=== PATIENT | female | born 1995 | race Caucasian/White ===

== ENCOUNTER 2018-02-14 19:53 | Emergency (ER) | payer OTHER ==
[2018-02-14] MEDS ORDERED: PRED-1 PO (20:09)
[2018-02-14] MEDS ORDERED: MYCO500T28 PO (20:09)
[2018-02-14] MEDS ORDERED: NS(*) 0.9% 1000 ML BAG 1,000 ML IV ONE (20:18)
--- NOTE | 2018-02-14 20:50 | ER Report ---
History and Physical Time Seen By MD: 20:04 Hx. of Stated Complaint: PT HAS LUPS; STATES THAT SHE FEELS LIKE SHE IS HAVING A FLAIR UP AND HAS A FEVER; STATES THAT SHE FEELS NUMB, BACK PAIN AND ITS HURTS TO BREATH HPI/ROS CHIEF COMPLAINT: Generalized body aches, fever, not feeling well. HISTORY OF PRESENT ILLNESS: 22-year-old female patient presents to emergency room with complaint of generalized body aches, fever and not feeling well. Patient states that this been going on for approximately one week. She was seen at a hospital down in [place]. They evaluated her and put her on steroids. She states she took the steroids as directed and never felt better while taking steroids. They told her that she did have a flareup of her lupus. Patient states that they did lab work, blood cultures, chest x-ray and then sent her home with steroids. Patient states she does not feel as if that seemed to help at all. Patient is currently taking 1500 mg of CellCept as well as 5 mg of prednisone daily. She does state that she did have her bellybutton pierced and has noticed a purulent drainage from that. She states that she has had a fever up to 102. She states that the fever seemed to be better while she was on the steroids, however the fever has returned since finishing the steroids. REVIEW OF SYSTEMS: Respiratory: No cough, no dyspnea. Cardiovascular: No chest pain, no palpitations. Gastrointestinal: No vomiting, no abdominal pain. Musculoskeletal: No back pain. Allergies: Coded Allergies: Sulfa (Sulfonamide Antibiotics) (Verified Allergy, Unknown, 02/14/18) bacitracin (Verified Allergy, Unknown, 02/14/18) neomycin (Verified Allergy, Unknown, 02/14/18) polymyxin B (Verified Allergy, Unknown, 02/14/18) prednisolone (Verified Allergy, Unknown, 02/14/18) Home Meds Active Scripts Prednisone (PREDNISONE) 20 Mg Tablet, 40 MG PO DAILY, #17 TAB Take 2 tabs a day for 4 days. Then take 1.5 tabs for 3 days. Then take 1 tab a day for 3 days. Take 0.5 tabs for 3 days and then return to your normal prescription. Prov:ALFRED MIKE 02/14/18 Cephalexin 500 Mg Tab (KEFLEX 500 MG TAB) 500 Mg Tablet, 500 MG PO Q6H, #38 TAB Prov:ALFRED MIKE [employer]IDENT[employer] M[employer]GAGE UNDERWRITER 02/14/18 Reported Medications Mycophenolate Mofetil (MYCOPHENOLATE MOFETIL) 500 Mg Tablet, 1500 MG PO BID 02/14/18 Prednisone 10 Mg Tab (PREDNISONE 10 MG TAB) 10 Mg Tablet, 5 MG PO BID, #3 TAB 02/14/18 Past Medical/Surgical History Patient has a past medical history of heart murmur, right wrist fracture, lupus. Patient has surgical history of right wrist surgery, tubes in ears. Reviewed Nurses Notes: Yes Constitutional Vital Sign - Last 24 Hours 02/14/18 02/14/18 02/14/18 02/14/18 19:59 20:00 20:00 20:23 Temp 97.8 Pulse 111 ??? Resp 17 B/P (MAP) 110/88 (95) 108/69 108/69 (82) Pulse Ox 97 O2 Delivery Room Air 02/14/18 02/14/18 02/14/18 02/14/18 20:32 20:53 21:04 21:23 Pulse 92 87 B/P (MAP) 105/70 (82) 103/67 (79) Pulse Ox 86 100 02/14/18 02/14/18 02/14/18 21:30 21:30 22:00 Pulse 84 94 B/P (MAP) 104/65 (78) 104/65 (78) 104/70 (81) Pulse Ox 90 96 Physical Exam General Appearance: The patient is alert, has no immediate need for airway protection and no current signs of toxicity. ENT: Tympanic membranes are pearly-nunez, auditory canals are patent, mucous membranes are moist. Respiratory: Chest is non tender, lungs are clear to auscultation. Cardiac: regular rate and rhythm Gastrointestinal: Abdomen is soft and non tender, no masses, bowel sounds normal. Musculoskeletal: Neck: Neck is supple and non tender. Extremities have full range of motion and are non tender. Skin: No rashes or lesions. Patient does have some erythema around her bellybutton piercing, she states that she has had some drainage, I was not able to express any purulent drainage. DIFFERENTIAL DIAGNOSIS: After history and physical exam differential diagnosis was considered for fever in adults including but not limited to pneumonia, urinary tract infection, viral syndrome, and influenza. Included in the differential is cellulitis as well as lupus flareup Medical Decision Making Data Points Result Diagram: 02/14/18203902/14/182039 Laboratory Hematology Test 02/14/18 20:17 02/14/18 20:40 Human Chorionic Gonadotropin, Qual Negative (NEGATIVE) Monoscreen Negative (NEGATIVE) Influenza Virus Type A (PCR) Negative (NEGATIVE) Influenza Virus Type B (PCR) Negative (NEGATIVE) Group A Streptococcus Screen Negative (NEGATIVE) Red Blood Count 4.70 M/uL (4.17-5.56) Mean Corpuscular Volume 84.8 fL (80.0-96.0) Mean Corpuscular Hemoglobin 29.8 pg (26.0-33.0) Mean Corpuscular Hemoglobin Concent 35.1 g/dL (32.0-36.0) Red Cell Distribution Width 13.2 % (11.5-14.5) Mean Platelet Volume 8.2 fL (7.2-11.1) Neutrophils (%) (Auto) 77.8 % (39.4-72.5) Lymphocytes (%) (Auto) 15.4 % (17.6-49.6) Monocytes (%) (Auto) 5.4 % (4.1-12.4) Eosinophils (%) (Auto) 0.4 % (0.4-6.7) Basophils (%) (Auto) 1.0 % (0.3-1.4) Nucleated RBC Relative Count (auto) 0.1 /100WBC Neutrophils # (Auto) 8.2 K/uL (2.0-7.4) Lymphocytes # (Auto) 1.6 K/uL (1.3-3.6) Monocytes # (Auto) 0.6 K/uL (0.3-1.0) Eosinophils # (Auto) 0.0 K/uL (0.0-0.5) Basophils # (Auto) 0.1 K/uL (0.0-0.1) Nucleated RBC Absolute Count (auto) 0.01 K/uL Erythrocyte Sedimentation Rate 22 mm/HOUR (0-20) Urine Color Yellow Urine Clarity Clear Urine pH 7.0 pH (4.8-9.5) Urine Specific [place] 1.019 Urine Protein Negative mg/dL (NEGATIVE) Urine Glucose (UA) Negative mg/dL (NEGATIVE) Urine Ketones Negative mg/dL (NEGATIVE) Urine Blood Negative (NEGATIVE) Urine Nitrite Negative (NEGATIVE) Urine Bilirubin Negative (NEGATIVE) Urine Urobilinogen Negative mg/dL (0.2-1.9) Urine Leukocyte Esterase Negative (NEGATIVE) Urine RBC <1 /HPF (0-2/HPF) Urine WBC 2 /HPF (0-5/HPF) Urine Squamous Epithelial Cells Many /LPF (</=FEW) Urine Transitional Epithelial Cells Few /LPF (NONE-FEW) Urine Bacteria Negative /HPF (NONE-FEW) Urine Mucus None /HPF (NONE-FEW) Sodium Level 141 mmol/L (137-145) Potassium Level 3.5 mmol/L (3.5-5.0) Chloride Level 102 mmol/L (98-107) Carbon Dioxide Level 23 mmol/L (22-31) Blood Urea Nitrogen 17 mg/dl (7-18) Creatinine 0.70 mg/dl (0.52-1.04) Glomerular Filtration Rate Calc > 60.0 Random Glucose 80 mg/dl (75-110) Calcium Level 9.1 mg/dl (8.4-10.2) Total Bilirubin 0.3 mg/dl (0.2-1.3) Aspartate Amino Transf (AST/SGOT) 14 U/L (0-35) Alanine Aminotransferase (ALT/SGPT) 24 U/L (0-56) Alkaline Phosphatase 81 U/L (0-126) C-Reactive Protein 2.3 mg/dl (<1.0) Total Protein 8.0 g/dl (6.3-8.2) Albumin 4.5 g/dl (3.5-5.0) Chemistry Test 02/14/18 20:17 02/14/18 20:40 Human Chorionic Gonadotropin, Qual Negative (NEGATIVE) Monoscreen Negative (NEGATIVE) Influenza Virus Type A (PCR) Negative (NEGATIVE) Influenza Virus Type B (PCR) Negative (NEGATIVE) Group A Streptococcus Screen Negative (NEGATIVE) White Blood Count 10.5 k/uL (4.5-11.0) Red Blood Count 4.70 M/uL (4.17-5.56) Hemoglobin 14.0 g/dL (12.0-16.0) Hematocrit 39.9 % (34.0-47.0) Mean Corpuscular Volume 84.8 fL (80.0-96.0) Mean Corpuscular Hemoglobin 29.8 pg (26.0-33.0) Mean Corpuscular Hemoglobin Concent 35.1 g/dL (32.0-36.0) Red Cell Distribution Width 13.2 % (11.5-14.5) Platelet Count 267 K/uL (150-450) Mean Platelet Volume 8.2 fL (7.2-11.1) Neutrophils (%) (Auto) 77.8 % (39.4-72.5) Lymphocytes (%) (Auto) 15.4 % (17.6-49.6) Monocytes (%) (Auto) 5.4 % (4.1-12.4) Eosinophils (%) (Auto) 0.4 % (0.4-6.7) Basophils (%) (Auto) 1.0 % (0.3-1.4) Nucleated RBC Relative Count (auto) 0.1 /100WBC Neutrophils # (Auto) 8.2 K/uL (2.0-7.4) Lymphocytes # (Auto) 1.6 K/uL (1.3-3.6) Monocytes # (Auto) 0.6 K/uL (0.3-1.0) Eosinophils # (Auto) 0.0 K/uL (0.0-0.5) Basophils # (Auto) 0.1 K/uL (0.0-0.1) Nucleated RBC Absolute Count (auto) 0.01 K/uL Erythrocyte Sedimentation Rate 22 mm/HOUR (0-20) Urine Color Yellow Urine Clarity Clear Urine pH 7.0 pH (4.8-9.5) Urine Specific [place] 1.019 Urine Protein Negative mg/dL (NEGATIVE) Urine Glucose (UA) Negative mg/dL (NEGATIVE) Urine Ketones Negative mg/dL (NEGATIVE) Urine Blood Negative (NEGATIVE) Urine Nitrite Negative (NEGATIVE) Urine Bilirubin Negative (NEGATIVE) Urine Urobilinogen Negative mg/dL (0.2-1.9) Urine Leukocyte Esterase Negative (NEGATIVE) Urine RBC <1 /HPF (0-2/HPF) Urine WBC 2 /HPF (0-5/HPF) Urine Squamous Epithelial Cells Many /LPF (</=FEW) Urine Transitional Epithelial Cells Few /LPF (NONE-FEW) Urine Bacteria Negative /HPF (NONE-FEW) Urine Mucus None /HPF (NONE-FEW) Glomerular Filtration Rate Calc > 60.0 Calcium Level 9.1 mg/dl (8.4-10.2) Total Bilirubin 0.3 mg/dl (0.2-1.3) Aspartate Amino Transf (AST/SGOT) 14 U/L (0-35) Alanine Aminotransferase (ALT/SGPT) 24 U/L (0-56) Alkaline Phosphatase 81 U/L (0-126) C-Reactive Protein 2.3 mg/dl (<1.0) Total Protein 8.0 g/dl (6.3-8.2) Albumin 4.5 g/dl (3.5-5.0) Urinalysis Test 02/14/18 20:40 Urine Color Yellow Urine Clarity Clear Urine pH 7.0 pH (4.8-9.5) Urine Specific [place] 1.019 Urine Protein Negative mg/dL (NEGATIVE) Urine Glucose (UA) Negative mg/dL (NEGATIVE) Urine Ketones Negative mg/dL (NEGATIVE) Urine Blood Negative (NEGATIVE) Urine Nitrite Negative (NEGATIVE) Urine Bilirubin Negative (NEGATIVE) Urine Urobilinogen Negative mg/dL (0.2-1.9) Urine Leukocyte Esterase Negative (NEGATIVE) Urine RBC <1 /HPF (0-2/HPF) Urine WBC 2 /HPF (0-5/HPF) Urine Squamous Epithelial Cells Many /LPF (</=FEW) Urine Transitional Epithelial Cells Few /LPF (NONE-FEW) Urine Bacteria Negative /HPF (NONE-FEW) Urine Mucus None /HPF (NONE-FEW) EKG/Imaging Imaging CHEST PA AND LAT Indication: Fever and bodyaches Comparison: None. Findings: Lungs: Clear. Mediastinum/pulmonary vasculature: Heart size and pulmonary vasculature are normal. Bones/soft tissues: Normal. IMPRESSION: Clear lungs. Report Dictated By: Hilario Blas at 02/14/2018 9:43 PM Report E-Signed By: Hilario Blas at 02/14/2018 9:43 PM ED Course/Re-evaluation ED Course Patient was admitted and examined, history and physical were obtained. Differential diagnoses were considered. On examination lungs are clear, heart regular, abdomen soft nontender. Patient does have some erythema around her bellybutton piercing. A chest x-ray, CBC, CMP, influenza, strep screen were done. Patient did have a little bit of a left shift, 77.4% neutrophils and a CRP of 2.1. Urinalysis was completely negative. I discussed the findings with patient. With the negative lab tests and what appears to be an infection of the bellybutton secondary to piercing we will go ahead and place patient on antibiotics. We will do that for 10 days. With her also possibly having a lupus flare up we will go ahead and prescribe her steroids. I believe that the infection will be taking care of I expect patient to be getting better. However there is no improvement I did give her a longer taper of the prednisone with 4 days of 40, 3 days at 30, 3 days at 20 and 3 days at 10 before returning to 5 mg a day as directed by her tile burner. I would like her to follow-up with her tile burner in the next 1-2 weeks. Patient verbalized understanding and agreement with plan. Decision to Disposition Date: Feb 14, 2018 Decision to Disposition Time: 22:01 Depart Departure Latest Vital Signs Vital Signs Date Time Temp Pulse Resp B/P (MAP) Pulse Ox O2 Delivery O2 Flow Rate FiO2 02/14/18 22:00 94 104/70 (81) 96 02/14/18 20:00 97.8 17 Room Air Impression: Primary Impression: Cellulitis Additional Impression: Lupus (systemic lupus erythematosus) Condition: Improved Disposition: HOME OR SELF-CARE New Scripts Prednisone (PREDNISONE) 20 Mg Tablet 40 MG PO DAILY, #17 TAB Take 2 tabs a day for 4 days. Then take 1.5 tabs for 3 days. Then take 1 tab a day for 3 days. Take 0.5 tabs for 3 days and then return to your normal prescription. Prov: ALFRED MIKE [facility] 02/14/18 Cephalexin 500 Mg Tab (KEFLEX 500 MG TAB) 500 Mg Tablet 500 MG PO Q6H, #38 TAB Prov: ALFRED MIKE [facility] 02/14/18 Patient Instructions: Cellulitis (ED) Additional Instructions: Get plenty of rest. Take Tylenol or Ibuprofen as needed for fevers or chills. Take your antibiotics as directed. If you still are feeling bad after taking the antibiotics you can take your prednisone. Return to the ER if condition worsens. Follow up with your Advanced Manufacturing Engineer in the next 1-2 weeks. Problem Qualifiers Primary Impression: Cellulitis Site of cellulitis: trunk Site of cellulitis of trunk: abdominal wall Qualified Codes: L03.311 - Cellulitis of abdominal wall Additional Impression: Lupus (systemic lupus erythematosus) Systemic lupus erythematosus type: unspecified Systemic lupus erythematosus organ involvement: unspecified Qualified Codes: M32.9 - Systemic lupus erythematosus, unspecified ALFRED MIKE Feb 14, 2018 20:49
[2018-02-14 20:54] LABS: PLATELET COUNT, AUTOMATED 267 K/uL (150-450)
--- NOTE | 2018-02-14 21:47 | RADIOLOGY IMAGING REPORT ---
FACILITY: [facility] PATIENT NAME: Arlen Haddad : 1995 MR: [id number] V: [id number] EXAM DATE: ORDERING PHYSICIAN: ALFRED MIKE TECHNOLOGIST: Location: [facility] Patient: Arlen Haddad : 1995 Visit/Account:[id number] Date of Sevice: 02/14/2018 CHEST PA AND LAT Indication: Fever and bodyaches Comparison: None. Findings: Lungs: Clear. Mediastinum/pulmonary vasculature: Heart size and pulmonary vasculature are normal. Bones/soft tissues: Normal. IMPRESSION: Clear lungs. Report Dictated By: Hilario Blas at 02/14/2018 9:43 PM Report E-Signed By: Hilario Blas at 02/14/2018 9:43 PM WSN:[id number]
[2018-02-14] MEDS ORDERED: CEPHALEXIN 500 MG CAP TH 2 CAP/BOTTLE PO ONE (21:55)
[2018-02-14] MEDS ORDERED: PRED20TA6 PO (21:59)
[2018-02-14] MEDS ORDERED: CEPH500T7 PO (21:59)
[2018-02-14 22:00] VITALS: BP 104/70
== END 2018-02-14 22:10 | disposition home or self-care (01) ==
LOC: ER 20:10
DX: M32.9 Systemic lupus erythematosus, unspecified (principal); L03.311 Cellulitis of abdominal wall
CPT/HCPCS: 36415; 81001; 84703; 85025; 85651; 86140; 86308; 87040; 87081; 87502; 87880; 96360; 99283; J7030; 71046; 82040; 82247; 82310; 82374; 82435; 82565; 82947; 84075; 84132; 84155; 84295; 84450; 84460; 84520